=== PATIENT | male | born 1970 | race African-American/Black ===

== ENCOUNTER 2018-01-22 05:30 | Emergency (ER) | payer BC, OTHER ==
[2018-01-22] MEDS ORDERED: KETOROLAC 30 MG/ML INJ ONE (06:27)
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
[2018-01-22 07:19] VITALS: TEMP 98.5
[2018-01-22 07:21] VITALS: BP 118/74; O2SAT 100
--- NOTE | 2018-01-22 09:15 | RAD REPORT ---
EXAM DESCRIPTION: RAD - Wrist Left 3 View - 01/22/2018 6:49 am CLINICAL HISTORY: Left wrist pain and swelling. COMPARISON: 09/24/2014 FINDINGS: Degenerative changes are present involving the radiocarpal joint. 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 Old ulnar styloid fracture is seen. Mild soft tissue swelling is pre sent. No acute fracture demonstrated. IMPRESSION: No acute fracture seen. Lunotriquetral coalition.
--- NOTE | 2018-01-22 09:16 | RAD REPORT ---
EXAM DESCRIPTION: RAD - Ankle Left 3 View - 01/22/2018 6:51 am CLINICAL HISTORY: Left ankle pain COMPARISON: 08/22/2015 FINDINGS: Mild arthritic changes are present involving the ankle. Small posterior calcaneal spur see n. No acute fracture or dislocation.
== END 2018-01-22 07:14 | disposition home or self-care (01) ==
LOC: ER 05:30
DX: M25.572 Pain in left ankle and joints of left foot (principal); I10 Essential (primary) hypertension; X58.XXXA Exposure to other specified factors, initial encounter; Y93.9 Activity, unspecified; Y92.009 Unspecified place in unspecified non-institutional (private) residence as the place of occurrence of the external cause
CPT/HCPCS: 96372; 99283

== ENCOUNTER 2018-01-29 10:53 | Emergency (ER) | payer OTHER ==
[2018-01-29] MEDS ORDERED: IBUPROFEN 200 MG TAB PO ONE (12:09)
[2018-01-29] MEDS ORDERED: ACETAMINOPHEN 500 MG TAB ONE (12:09)
[2018-01-29] MEDS ORDERED: IBUPROFEN 400 MG TAB ONE (12:09)
[2018-01-29] MEDS ORDERED: DIAZEPAM 10 MG/2 ML INJ SYRINGE ONE (12:11)
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
[2018-01-29 13:14] VITALS: TEMP 98.6; O2SAT 100
[2018-01-29 13:16] VITALS: BP 136/98
== END 2018-01-29 13:10 | disposition home or self-care (01) ==
LOC: ER 10:53
DX: S39.012A Strain of muscle, fascia and tendon of lower back, initial encounter (principal); V69.49XA Driver of heavy transport vehicle injured in collision with other motor vehicles in traffic accident, initial encounter; I10 Essential (primary) hypertension; Z72.0 Tobacco use
CPT/HCPCS: 72100; 96372; 99283; J3360

== ENCOUNTER 2018-07-31 10:57 | Emergency (ER) | payer OTHER ==
[2018-07-31 13:19] LABS: Absolute Lymphocytes (CBC) 1.6 K/uL (0.7-4.9); Absolute Monocytes 0.5 K/uL (0.1-1.3); Absolute Neutrophil 8.6 K/uL (1.8-8.0); Basophils % 0.4 % (0-1.3); Eosinophils % 0.3 % (0-4.4); Hematocrit 45.3 % (39.6-49.0); Lymphocytes % 14.7 % (15.3-44.8); MCH 32.1 pg (27.0-35.0); MCV 91.2 fL (80-100); MPV 8.2 fL (7.6-11.3); RBC Red Blood Cell Count 4.96 M/uL (4.33-5.43)
[2018-07-31] MEDS ORDERED: MORPHINE 4 MG/ML SYR ONE (13:25)
[2018-07-31] MEDS ORDERED: ONDANSETRON 4 MG/2 ML VIAL ONE (13:25)
[2018-07-31 13:38] LABS: Albumin 4.2 g/dL (3.4-5.0); Bilirubin Direct 0.1 mg/dL (0-0.2); Bilirubin Total 0.5 mg/dL (0.2-1.0); Potassium 3.8 mmol/L (3.5-5.1); Protein, Total 8.3 g/dL (6.4-8.2)
--- NOTE | 2018-07-31 14:31 | RAD REPORT ---
EXAM DESCRIPTION: CT - Pelvis W/Cont - 07/31/2018 2:12 pm CLINICAL HISTORY: Rectal pain and pressure COMPARISON: None. TECHNIQUE: During dynamic enhancement using nonionic IV contrast, axial 5 millimeter thick images of the pelvis obtained. Sagittal and coronal reformatted images were generated and reviewed. The CT scan was performed using dose optimization techniques as appropriate to a performed exam incl uding one or more of the following: Automated exposure control, adjustment of the mA and/or kV accord ing to patient size (this includes techniques or standardized protocols for targeted exams where dose is matched to indication/reason for exam) and use of iterative reconstruction technique. FINDINGS: No vascular abnormality identifiable. No acute bone finding seen. Patient has advanced for age degenerative change involving the L4-5 and L5-S1 disc levels. L3-4 level appears to be a partial ly fused level. No pathologic bone process seen. The appendix is identified and normal. No dilated bowel loops or bowel wall thickening. Specifically, no wall thickening or focal abnormality of the rectum. Perirectal fatty tissues show no mass, abnorm al lymphadenopathy or inflammatory stranding. Prostate gland and seminal vesicles are normal range. N o urinary bladder abnormality. Patient has numerous phleboliths. No convincing evidence for ureteral calculus. No inguinal or lower abdominal wall hernia. Within the peritoneal and retroperitoneal spaces no suspi cious findings noted. IMPRESSION: CT imaging of the pelvis shows no suspicious finding of the rectum or perirectal fat. No acute findings identifiable. Advanced for age degenerative change at L4-5 and L5-S1. L3-4 level is fused.
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
[2018-07-31 14:58] VITALS: TEMP 97.1
[2018-07-31 14:59] VITALS: BP 130/95; O2SAT 97
== END 2018-07-31 14:53 | disposition home or self-care (01) ==
LOC: ER 10:57
DX: K60.0 Acute anal fissure (principal); I10 Essential (primary) hypertension
CPT/HCPCS: 36415; 72193; 80048; 80076; 83690; 85025; 96374; 96375; 99283; J2405; Q9967

== ENCOUNTER 2021-01-06 03:27 | Emergency (ER) | payer OTHER, SELFPAY ==
[2021-01-06] MEDS ORDERED: ONDANSETRON 4 MG/2 ML VIAL ONE (04:31)
[2021-01-06] MEDS ORDERED: MORPHINE 4 MG/ML SYR ONE (04:31)
[2021-01-06 04:52] LABS: Alkaline Phosphatase ND U/L (45-117)
[2021-01-06 04:57] LABS: Absolute Lymphocytes (CBC) 2.5 K/uL (0.7-4.9); Basophils % 0.5 % (0-1.3); Lymphocytes % 32.7 % (15.3-44.8); MPV 8.4 fL (7.6-11.3); RBC Red Blood Cell Count 4.82 M/uL (4.33-5.43)
[2021-01-06 05:22] LABS: ALT/SGPT 50 U/L (12-78); AST/SGOT 30 U/L (15-37); Albumin 3.7 g/dL (3.4-5.0); BUN Blood Urea Nitrogen 16 mg/dL (7-18); Bicarbonate 28 mmol/L (21-32); Bilirubin Direct < 0.1 mg/dL (0-0.2); Bilirubin Total 0.4 mg/dL (0.2-1.0); Glucose Level 102 mg/dL (74-106); Potassium 4.2 mmol/L (3.5-5.1); Protein, Total 7.7 g/dL (6.4-8.2); Sodium Level 138 mmol/L (136-145)
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
[2021-01-06 06:50] VITALS: TEMP 97.9
[2021-01-06 06:53] VITALS: BP 125/80; O2SAT 10
--- NOTE | 2021-01-07 11:12 | RAD REPORT ---
EXAM DESCRIPTION: CT - Head C Spine Cap Araceli Canseco - 01/06/2021 6:45 am COMPARISON: None. CLINICAL HISTORY: [facility] MAIN [facility] TECHNIQUE: Axial images were obtained from skull base to vertex without intravenous contrast. Imag es viewed on bone and brain windows. Multiplanar reformats were performed. Automated exposure contr ol was utilized on this examination as a dose lowering technique. FINDINGS: Brain parenchyma, ventricles, dura, meninges, and extra-axial spaces: Ventricles and sulci are normal. No abnormal attenuation of brain parenchyma is present. No acute intracranial hemor rhage or abnormal extra-axial fluid collections are present. Vascular structures: No hyperdense arteries or veins. Calvarium, mastoid air cells, paranasal sinuses and orbits: The calvarium is normal. The mastoid air cells are clear. Visualized paranasal sinuses are unremarkable. Orbital structures are unremarkable. IMPRESSION: No acute intracranial abnormality. EXAM DESCRIPTION: CT Cervical Spine COMPARISON: None. CLINICAL HISTORY: [facility] TECHNIQUE: Axial CT images were obtained through the entire cervical spine without contrast. Sagit horacio and coronal reconstructions are provided. Automated exposure control was utilized on this examina tion as a dose lowering technique. FINDINGS: Vertebrae: Vertebral statures and alignment are normal. No acute fracture, dislocation o r destructive osseous process is present. There are early degenerative changes of the odontoid proces s. Spinal canal, foramina, and facet joints: Greatest spinal canal stenosis is mild at C4-C5 and C5-C6 due to disc osteophyte complexes. There i s severe foraminal stenosis at right C6 due to uncovertebral hypertrophy. Paraspinous soft-tissues: Normal. Thyroid: Normal. Other Findings: Mild bilateral carotid atherosclerosis. IMPRESSION: 1. No acute fracture or subluxation. 2. Severe right C6 foraminal stenosis. Mild cervical spondylosis otherwise. EXAM DESCRIPTION: CT Chest, Abdomen, and Pelvis COMPARISON: None. CLINICAL HISTORY: [facility] MAIN [facility] TECHNIQUE: CT images through the chest, abdomen, and pelvis following IV contrast. Multiplanar refor mats. Automated exposure control was utilized on this examination as a dose lowering technique. CT CHEST FINDINGS: Heart and mediastinum: Heart size is normal. No lymphadenopathy. Thyroid gland: Visualized portions are normal. Lungs: Clear. Airways: No filling defects. No bronchiectasis. Pleura: No pneumothorax. No significant pleural effusion. Musculoskeletal and soft tissues: Mild thoracic spondylosis. A few vertebral osteophytes are noted an teriorly. Disc osteophyte complexes in the lateral recesses are noted at T9-T10 and disc height loss is present at T10-T11. CHEST IMPRESSION: No acute chest findings. CT ABDOMEN & PELVIS FINDINGS: Liver: A 1.3 cm peripherally enhancing focus is noted in the right liver on series 701 image 50. This most likely represents a hemangioma by the enhancement pattern. There are a few small additional sca ttered hepatic hypodensities favoring benign cysts or hemangiomas. Gallbladder and biliary: Cholecystectomy. Unremarkable biliary tree. Pancreas: Normal. Spleen: Normal. Kidneys and adrenal glands: Normal adrenal glands. Normal kidneys Stomach and Small Bowel: The stomach and small bowel are normal. Urinary bladder: Normal. Prostate/Male Urogenital: Normal. Colon and Appendix: The colon is unremarkable. No evidence of appendicitis. Peritoneal cavity: No ascites or free air. Retroperitoneum and lymph nodes: Normal. Vascular: Mild atherosclerosis. Musculoskeletal and soft tissues: Soft tissues are unremarkable. Lumbar spondylosis is present, great est at L4-L5 and L5-S1. 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 No aggressive bon e lesions. No compression fracture. ABDOMEN AND PELVIS IMPRESSION: No acute intra-abdominal abnormality. Electronically signed by: Shlomo Wilson MD 01/06/2021 5:40 AM CDT Due to temporary technical issues with the PACS/Fluency reporting system, reports are being signed by the in house radiologist without review as a courtesy to ensure prompt reporting. The interpreting r adiologist is fully responsible for the content of the report.
== END 2021-01-06 06:43 | disposition home or self-care (01) ==
LOC: ER 03:27
DX: S16.1XXA Strain of muscle, fascia and tendon at neck level, initial encounter (principal); V49.40XA Driver injured in collision with unspecified motor vehicles in traffic accident, initial encounter; I10 Essential (primary) hypertension
CPT/HCPCS: 36415; 70450; 71260; 72125; 74177; 80048; 80076; 82565; 85025; 86850; 86900; 86901; 96374; 96375; 99284; J2405; Q9967

== ENCOUNTER 2024-07-22 22:49 | Emergency (ER) | payer BC, SELFPAY ==
--- OUTSIDE RECORDS SUMMARY | 2024-07-22 22:52 | XMS REPORT | Continuity of Care Document ---
Author Name Unknown Address [address] [place] [address] [address] [place] [address] 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
[2024-07-22] MEDS ORDERED: HYDROCODONE/APAP 10/325 TAB ONE (23:28)
--- NOTE | 2024-07-23 00:52 | ER ---
Nurse's Notes [facility] Name: Ilda Prince Age: 53 yrs Sex: Male : 1970 Arrival Date: 07/22/2024 Time: 22:49 Bed 12 Private MD: Diagnosis: Idiopathic gout, left wrist Presentation: 07/22 23:02 Chief complaint: Patient states: sometimes my left wrist and hand swell after using a lg3 drill but it goes away. i used a drill Saturday and it started hurting and swelling that night but its not going away and now my hand is tingling. Coronavirus screen: Client denies travel out of the [place] in the last 14 days. At this time, the client does not indicate any symptoms associated with coronavirus-19. Ebola Screen: No symptoms or risks identified at this time. Initial Sepsis Screen: Does the patient meet any 2 criteria? No. Patient's initial sepsis screen is negative. Does the patient have a suspected source of infection? No. Patient's initial sepsis screen is negative. Risk Assessment: Do you want to hurt yourself or someone else? Patient reports no desire to harm self or others. Onset of symptoms was July 18, 2024. 23:02 Method Of Arrival: Ambulatory lg3 23:02 Acuity: ESME 3 lg3 Triage Assessment: 23:05 General: Appears in no apparent distress. comfortable, Behavior is calm, cooperative. lg3 Pain: Complains of pain in left hand and left arm. EENT: No deficits noted. No signs and/or symptoms were reported regarding the EENT system. Neuro: No deficits noted. Clayton Agitation-Sedation Scale (RASS): 0 - Alert and Calm Level of Consciousness is awake, alert, obeys commands, Oriented to person, place, time, situation. Cardiovascular: No deficits noted. Denies chest pain, shortness of breath, Capillary refill < 3 seconds Clubbing of nail beds is absent JVD is absent Patient's skin is warm and dry. Respiratory: No deficits noted. Airway is patent Respiratory effort is even, unlabored, Respiratory pattern is regular, symmetrical. GI: No deficits noted. No signs and/or symptoms were reported involving the gastrointestinal system. : No deficits noted. No signs and/or symptoms were reported regarding the genitourinary system. Derm: No deficits noted. Skin is intact, is healthy with good turgor, Skin is dry, Skin is normal, Skin temperature is warm. Musculoskeletal: Circulation, motion, and sensation intact. Range of motion: limited in left wrist Swelling present in left hand and left wrist Reports pain in left wrist and left hand. Historical: - Allergies: 23:05 No Known Allergies; lg3 - Home Meds: 23:05 pregabalin Oral [Active]; Tylenol #4 Oral [Active]; Naproxen Oral [Active]; tizanidine lg3 oral [Active]; lisinopril Oral [Active]; - PMHx: 23:05 Arthritis; Hypertension; lg3 - PSHx: 23:05 back; lg3 - Immunization history:: Adult Immunizations up to date. - Infectious Disease History:: Denies. - Social history:: Smoking status: Patient denies any tobacco usage or history of. Patient uses alcohol, occasionally. Patient/guardian denies using street drugs. Screenin:09 [facility] ED Fall Risk Assessment (Adult) History of falling in the last 3 months, lg3 including since admission No falls in past 3 months (0 pts) Confusion or Disorientation No (0 pts) Intoxicated or Sedated No (0 pts) Impaired Gait No (0 pts) Mobility Assist Device Used No (0 pt) Altered Elimination No (0 pt) Score/Fall Risk Level 0 - 2 = Low Risk Oriented to surroundings, Maintained a safe environment, Educated pt \T\ family on fall prevention, incl call for assistance when getting out of bed, Assessed \T\ reinforced patient's understanding of fall precautions. Abuse screen: Denies threats or abuse. Denies injuries from another. Nutritional screening: No deficits noted. Tuberculosis screening: No symptoms or risk factors identified. Assessment: 23:09 General: see triage assessment. lg3 10 00:25 Reassessment: Patient appears in no apparent distress at this time. No changes from lg3 previously documented assessment. Patient and/or family updated on plan of care and expected duration. Pain level reassessed. Patient is alert, oriented x 3, equal unlabored respirations, skin warm/dry/pink. 01:29 Reassessment: Patient appears in no apparent distress at this time. No changes from lg3 previously documented assessment. Patient and/or family updated on plan of care and expected duration. Pain level reassessed. Patient is alert, oriented x 3, equal unlabored respirations, skin warm/dry/pink. Patient states symptoms have improved. Vital Signs: 07/22 23:02 BP 137 / 79; Pulse 72; Resp 17 S; Temp 98.7(O); Pulse Ox 98% on R/A; Weight 107.5 kg lg3 (R); Height 5 ft. 9 in. (R); Pain 8/10; 07/23 01:29 BP 129 / 82; Pulse 64; Resp 18 S; Temp 98.2(O); Pulse Ox 99% on R/A; lg3 07/22 23:02 Body Mass Index 35.00 (107.50 kg, 175.26 cm) lg3 07/22 23:02 Pain Scale: Adult lg3 ED Course: 07/22 22:51 Patient arrived in ED. mr 22:57 Nora Fowler PA-C [facility] sb4 22:57 Vanessa Deal MD is Attending Physician. sb4 23:04 Triage completed. lg3 23:05 Arm band placed on right wrist. lg3 23:09 Patient has correct armband on for positive identification. Placed in gown. Bed in low lg3 position. Call light in reach. Side rails up X 1. Client placed on continuous cardiac and pulse oximetry monitoring. NIBP monitoring applied. Door closed. Noise minimized. Warm blanket given. Pillow given. 23:26 Aditi Toussaint, RN is Primary Nurse. lg3 23:52 Wrist Left (3 View) XRAY In Process Unspecified. EDMS 07/23 01:30 No provider procedures requiring assistance completed. Patient did not have IV access lg3 during this emergency room visit. Administered Medications: 07/22 23:33 Drug: Holstein PO 10 mg-325 mg 1 tabs PO once Route: PO; lg3 07/23 01:18 Follow up: Response: No adverse reaction; Marked relief of symptoms; Pain is decreased lg3 01:18 Drug: Colchicine-Probenecid PO 2 tabs PO once Route: PO; lg3 01:19 Follow up: Response: No adverse reaction; Medication administered at discharge. lg3 01:18 Drug: predniSONE PO 40 mg PO once Route: PO; lg3 01:19 Follow up: Response: No adverse reaction; Medication administered at discharge. lg3 01:19 Drug: Colchicine-Probenecid PO 1 tabs PO once; take 1 hour after 1st dose Route: PO; lg3 01:19 Follow up: Response: No adverse reaction; Medication administered at discharge. lg3 Medication: 07/22 23:09 VIS not applicable for this client. lg3 Outcome: 07/23 00:51 Discharge ordered by . sb4 01:30 Discharged to home ambulatory, lg3 01:30 Condition: stable 01:30 Discharge instructions given to patient, Instructed on discharge instructions, follow up and referral plans. medication usage, Demonstrated understanding of instructions, follow-up care, medications, Prescriptions given X 2, 01:30 Patient left the ED. lg3 Signatures: Dispatcher [employer] EDMS Shirley Hayes, Aditi Flowers, RN RN lg3 Nora Fowler, PA-C PA-C sb4 Corrections: (The following items were deleted from the chart) 07/22 23:07 23:05 PSHx: None; lg3 lg3
--- NOTE | 2024-07-23 00:52 | EDPHYS ---
Physician Documentation [facility] Name: Ilda Prince Age: 53 yrs Sex: Male : 1970 Arrival Date: 07/22/2024 Time: 22:49 Bed 12 Private MD: ED Physician Vanessa Deal HPI: 07/22 23:59 This 53 yrs old Black Male presents to ER via Ambulatory with complaints of Wrist Pain, sb4 Swelling. 23:59 The patient or guardian reports decreased range of motion, pain, swelling, tenderness. sb4 The complaints affect the left wrist diffusely. Patient states that his left wrist becomes inflamed, swollen, and painful intermittently after using a drill but states that it typically resolves on its own. He states however this time it has remained swollen and painful and is not getting better despite Tylenol No. 4 and anti-inflammatories. He states that his hand feels numb and tingling. He denies any traumatic injury. Reports a history of gout, but not in wrist. Historical: - Allergies: 23:05 No Known Allergies; lg3 - Home Meds: 23:05 pregabalin Oral [Active]; Tylenol #4 Oral [Active]; Naproxen Oral [Active]; tizanidine lg3 oral [Active]; lisinopril Oral [Active]; - PMHx: 23:05 Arthritis; Hypertension; lg3 - PSHx: 23:05 back; lg3 - Immunization history:: Adult Immunizations up to date. - Infectious Disease History:: Denies. - Social history:: Smoking status: Patient denies any tobacco usage or history of. Patient uses alcohol, occasionally. Patient/guardian denies using street drugs. ROS: 23:59 Constitutional: Negative for fever, chills, and weight loss, sb4 23:59 MS/extremity: Positive for injury or acute deformity, decreased range of motion, erythema, pain, swelling, tenderness, warmth, 23:59 All other systems are negative, Exam: 23:59 Hand exam: ROM: limited active range of motion, in the left wrist, Circulation is sb4 intact in all extremities. Pulses: are normal with no appreciated deficits, Perfusion: the extremity is normally perfused throughout, sensation intact. 23:59 Skin: Appearance: Temperature: warm, 23:59 Constitutional: This is a well developed, well nourished patient who is awake, alert, and in no acute distress. Vital Signs: 23:02 BP 137 / 79; Pulse 72; Resp 17 S; Temp 98.7(O); Pulse Ox 98% on R/A; Weight 107.5 kg lg3 (R); Height 5 ft. 9 in. (R); Pain 8/; 07/23 01:29 BP 129 / 82; Pulse 64; Resp 18 S; Temp 98.2(O); Pulse Ox 99% on R/A; lg3 07/22 23:02 Body Mass Index 35.00 (107.50 kg, 175.26 cm) lg3 07/22 23:02 Pain Scale: Adult lg3 MDM: 07/22 23:02 Patient medically screened. sb4 07/23 00:50 Data reviewed: vital signs, nurses notes, radiologic studies, and as a result, I will sb4 discharge patient. Counseling: I had a detailed discussion with the patient and/or guardian regarding the historical points, exam findings, and any diagnostic results supporting the discharge/admit diagnosis, radiology results, to return to the emergency department if symptoms worsen or persist or if there are any questions or concerns that arise at home. 07/22 23:21 Order name: Wrist Left (3 View) XRAY sb4 Administered Medications: 07/22 23:33 Drug: [place] PO 10 mg-325 mg 1 tabs PO once Route: PO; lg3 07/23 01:18 Follow up: Response: No adverse reaction; Marked relief of symptoms; Pain is decreased lg3 01:18 Drug: Colchicine-Probenecid PO 2 tabs PO once Route: PO; lg3 01:19 Follow up: Response: No adverse reaction; Medication administered at discharge. lg3 01:18 Drug: predniSONE PO 40 mg PO once Route: PO; lg3 01:19 Follow up: Response: No adverse reaction; Medication administered at discharge. lg3 01:19 Drug: Colchicine-Probenecid PO 1 tabs PO once; take 1 hour after 1st dose Route: PO; lg3 01:19 Follow up: Response: No adverse reaction; Medication administered at discharge. lg3 Disposition Summary: 07/23/24 00:51 Discharge Ordered Notes: Location: Home sb4 Problem: new sb4 Symptoms: have improved sb4 Condition: Stable sb4 Diagnosis - Idiopathic gout, left wrist sb4 Followup: sb4 - With: Private Physician - When: As needed - Reason: Recheck today's complaints, Re-evaluation by your physician Discharge Instructions: - Discharge Summary Sheet sb4 - Gout, [id number] sb4 Forms: - Patient Portal Instructions sb4 - Leadership Thank You Letter sb4 - Work release form rv1 Prescriptions: - Allopurinol 300 mg Oral Tablet - take 1 tablet ORAL route once daily; 30 tablet; Refills: 0, Product Selection sb4 Permitted - Prednisone 20 mg Oral Tablet - take 2 tablets ORAL route once daily for 5 days; 10 tablet; Refills: 0, Product sb4 Selection Permitted Signatures: Dispatcher [employer] Aditi Haji RN RN lg3 Nora Fowler PA-C PA-C sb4 Corrections: (The following items were deleted from the chart) 07/22 23:07 23:05 PSHx: None; lg3 lg3 23:22 23:22 Wrist Left 3 View+RAD.RAD.BRZ ordered. EDMS EDMS
[2024-07-23] MEDS ORDERED: predniSONE 20 MG TAB ONE (01:10)
[2024-07-23] MEDS ORDERED: COLCHICINE 0.6 MG TAB ONE (01:11)
--- NOTE | 2024-07-23 06:04 | RAD REPORT ---
EXAM: XR WRIST 3 OR MORE VIEWS LEFT CLINICAL DATA: 53 years Male Pain;Numbness/tingling TECHNICAL DATA: Three x-ray views of the left wrist were performed on 07/22/2024 at 11:42 PM. COMPARISONS: None FINDINGS: There is no evidence of acute fracture or dislocation. There are hypertrophic changes involving the d istal ulna and there are erosive changes with surrounding soft tissue calcification and swelling along the dorsal lateral aspect of the left wrist. Findings are nonspecific but can be seen with gout or other inflammatory arthritides such as rheumatoid or CPPD. The remainder of the visualized osseous structures are unremarkable. No additional arthritic or degenerative changes are identified. No additional lytic or sclerotic bone lesions are seen. Bone mineralization is normal. IMPRESSION: Hypertrophic changes involving the distal ulna and erosive changes with surrounding soft tissue calci fication and swelling along the dorsal lateral aspect of the left wrist. Findings are nonspecific but can be seen with gout or other inflammatory arthritides such as rheumatoid or CPPD. Other potenti al etiologies include amyloid deposition, giant cell tumor, or synovial chondromatosis. Electronically signed by: Cassandra Vaughn DO 07/23/2024 12:43 AM CDT RP Due to temporary technical issues with the PACS/REach reporting system, reports are being kerry d by the in-house radiologist without review as a courtesy to ensure prompt reporting the interpreting radiologist is fully responsible for the content of the report. Transcribed Date/Time: 07/23/2024 6:04 AM
[2024-07-23 18:31] VITALS: BP 129/82; TEMP 98.2; O2SAT 99
== END 2024-07-23 01:30 | disposition home or self-care (01) ==
LOC: ER 22:49
DX: M10.032 Idiopathic gout, left wrist (principal); I10 Essential (primary) hypertension
CPT/HCPCS: 73110; 99284; J7512